=== PATIENT | female | born 1960 | race Caucasian/White ===

== ENCOUNTER 2022-05-03 07:19 | Day surgery (SDC) | payer BC ==
[~2022-05-03 07:19] MED LIST: Lactated Ringers 1,000 ML IV SCH; Lidocaine 1%/Sod Bicarbonate in NS 8.4% 1 ML Syringe IDERM PRN; Sodium Chloride 0.9% 10 ML Syringe FLUSH PRN; Sodium Chloride 0.9% 10 ML Syringe FLUSH SCH
[2022-05-03] MEDS ORDERED: Albuterol/Ipratropium 3.0-0.5 MG/3 ML Neb Soln NEB PRN (08:32)
[2022-05-03] MEDS ORDERED: Citric Acid/Sodium Citrate Solution 30 ML Cup PO ONE (09:15)
[2022-05-03] MEDS ORDERED: fentaNYL 100 MCG/2 ML SDV ONE ×2 (09:23→09:50)
[2022-05-03] MEDS ORDERED: Midazolam 1 MG/ML 2 ML SDV ONE (09:24)
[2022-05-03] MEDS ORDERED: Propofol 200 MG/20 ML SDV ONE ×2 (09:25→09:43)
[2022-05-03] MEDS ORDERED: Ketamine 500 mg/10 ML MDV ONE (09:31)
[2022-05-03] MEDS ORDERED: ceFAZolin 2 GM Vial ONE (09:32)
[2022-05-03] MEDS ORDERED: Lidocaine 1% 5 ML VIAL ONE (09:38)
[2022-05-03] MEDS ORDERED: Ketorolac 30 MG/ML SDV ONE (09:51)
[2022-05-03] MEDS ORDERED: Ondansetron 4 MG/2 ML SDV ONE (09:54)
== END 2022-05-03 12:05 | disposition home or self-care (01) ==
LOC: JD.SDS 07:19
PROVIDERS: ATTEND Obstetrics & Gynecology
DX: N84.0 Polyp of corpus uteri (principal); I10 Essential (primary) hypertension; E66.9 Obesity, unspecified; J45.909 Unspecified asthma, uncomplicated; E03.9 Hypothyroidism, unspecified; K21.9 Gastro-esophageal reflux disease without esophagitis; Z68.41 Body mass index [BMI] 40.0-44.9, adult; Z79.890 Hormone replacement therapy; Z91.030 Bee allergy status; Z88.7 Allergy status to serum and vaccine; Z91.048 Other nonmedicinal substance allergy status; Z98.890 Other specified postprocedural states; Z79.899 Other long term (current) drug therapy
CPT/HCPCS: 36415; 58558; 81003; 85025; A9270; J0690; J1885; J2250; J2405; J2704; J3010; J3490; J7120; 00952; J7620-GY